=== PATIENT | female | born 1960 | race Caucasian/White ===

== ENCOUNTER 2016-09-09 08:26 | Observation (INO) | payer MEDICARE, OTHER ==
[2016-09-09 09:04] LABS: Hematocrit 28.1 % (37.0-47.0); Hemoglobin 9.2 gm/dL (12.5-16.0); Mean Cell Volume 92.4 fl (78-100); Mean Corpuscular Hemoglobin 30.3 pg (27-31); Mean Corpuscular Hgb Conc 32.7 g/dl (32-36); Mean Platelet Volume 9.8 fl (6.0-9.5); Neutrophil # 5.2 K/mm3 (1.3-6.0); Neutrophil % 66.2 % (42-75.0); Platelet Count 200 K/mm3 (150-450); Red Blood Count 3.04 M/mm3 (4.2-5.4); Red Cell Distribution Width 13.6 % (11.5-14.0); White Blood Count 7.9 K/mm3 (4.0-10.5)
[2016-09-09 09:18] LABS: Albumin * 2.9 gm/dl (3.4-5.0); Anion Gap 10.5 mmol/L (6.8-13.8); BUN/Creatinine Ratio 33.3 (9.0-21.6); Bilirubin, Total 0.2 mg/dL (0.0-1.1); Ca. Corrected For Albumin 8.9 mg/dL (8.4-10.2); Calcium * 8.3 mg/dL (7.9-10.9); Carbon Dioxide 27.5 mmol/L (24-32.6); Total Protein 5.6 gm/dL (6.2-8.2)
[2016-09-09 09:32] LABS: Prothrombin Time (Patient) 10.2 Seconds (9.4-11.4)
[2016-09-09 09:33] LABS: INR 0.98 INR (0.90-1.10)
[2016-09-09] MEDS ORDERED: NORMAL SALINE 1,000 ML IV ONE ×2 (09:37→16:57)
--- NOTE | 2016-09-09 09:50 | ERNOTE ---
GI Bleeding/Rectal Pain ER Date of Service: 09/09/16 Presenting Symptoms: rectal bleeding Time Seen by Provider: 09/09/16 08:48 Source: patient Exam Limitations: no limitations Immunizations: IMMUNIZATION HX Immunizations Up to Date Yes History of Influenza Vaccine Yes Hx Pneumococcal Vaccination Yes Allergies/Adverse Reactions: Allergies No Known Allergies Allergy (Verified 09/09/16 08:43) Home Medications: HOME MEDICATIONS Levothyroxine Sodium [Synthroid] 75 mcg PO DAILY 10/21/12 [Last Taken Unknown] Hydrochlorothiazide 6.25 mg PO DAILY 09/09/16 [Last Taken Unknown] Lisinopril [Zestril] 20 mg PO DAILY 09/09/16 [Last Taken Unknown] Meloxicam [Mobic] 15 mg PO DAILY 09/09/16 [Last Taken Unknown] Multivit-Min/FA/Lycopen/Lutein [Centrum Silver Tablet] 1 each PO DAILY 09/09/16 [Last Taken Unknown] Narrative: Patient presents to the ED for rectal bleeding. She relates that last night she had a BM with blood. Overnight twice and once this morning. It was relates do be large amounts of dark blood. She has had some bleeding before but it has been attributed to hemorrhoids. She denies syncope, no abdominal pain. No vomiting. Denies ASA or blood thinners. She does have some constipation. She has not seen anyone else for this. She has never had this much bleeding before. She relates she has had a colonoscopy in the past but cannot remember when and cannot recall what it showed. I cannot find record of this here. Timing: intermittent Quality/Severity: Present: other - denies pain Nausea/Vomiting: Present: none Abdominal Pain: Present: none Rectal Bleeding: Present: blood mixed with stool Prior Treament: Denies: recently seen Review of Systems - Review of Systems Constitutional: Absent: fever Respiratory: Absent: shortness of breath Cardiology: Absent: chest pain Gastrointestinal/Abdominal: Absent: vomiting, abdominal pain Genitourinary: Absent: dysuria All Other Systems: All systems neg except as marked - Patient's Past Medical History Patient History - Medical: Hypothyroidism, Other Patient History - Cardiac/Respiratory: No pertinent hx, Hypertension Patient History - Cancer: No Hx of Cancer Patient History - Surgical Procedures: No surgical history, Colonoscopy Patient History - Other: None LMP (females 10-50): 2002 - Social History Living Situations: significant other Abuse History: No History of abuse Psych History: No pertinent hx Smoking Status: Never smoker Do you dip or chew tobacco: No Alcohol Use: none Drug Use: none - Immunizations Immunizations Up to Date: Yes Hx Pneumococcal Vaccination: Yes History of Influenza Vaccine: Yes Physical Exam - Physical Exam General Appearance: Present: alert, no apparent distress Eye Exam: Normal inspection: bilateral, PERRL: bilateral Ears, Nose, Throat: Present: normal ENT inspection Neck: Present: normal inspection Respiratory: Present: no respiratory distress, normal breath sounds, no accessory muscle use, lungs clear Cardiovascular/Chest: Present: regular rate, rhythm, normal peripheral pulses Gastrointestinal/Abdominal: Present: normal bowel sounds, nontender, soft. Absent: tenderness, abnormal bowel sounds Rectal Exam: Present: other - External hemorrhoids but nothing that appears to be bleeding. On JC she had a fair amount of dark blood from the rectum. Back Exam: Absent: CVA tenderness (R), CVA tenderness (L) Extremity Exam: Present: normal inspection Neurological Exam: Present: alert, no motor/sensory deficits, diet clerk II-XII nml as tested Skin Exam: Absent: skin rash ED Progress - Results and Orders Patient's Lab Results:: I have reviewed the patient's lab results. - Vital Signs Patient's Vital Signs:: I have reviewed the patient's vital signs. Vital Signs: Vital Signs 09/09/16 09/09/16 09/09/16 08:34 08:43 08:55 Temperature 36.9 C 36.9 C Pulse Rate 70 70 88 Respiratory 15 15 Rate Blood Pressure 153/80 153/80 O2 Sat by Pulse 96 96 Oximetry - Progress/Reassessment Chief Complaint: GI Bleed Progress Note-Subjective: 09/09/16 09:48 I discussed the case with Dr Stone who will admit. D/W Dr Vásquez who will see the patient in consult and a bleeding scan was recommended which I ordered. Patient crossmatched. Has new anemia. No need for transfusion at this point. She will be admitted to the hospital with bleeding scan, Gen surg consult and supportive measures. Not on ASA or blood thinners. Departure Clinical Impression: Gastrointestinal bleeding - Departure Disposition: [facility] Condition: Stable Referrals: Samuel Collado MD [Primary Care Provider] -
[2016-09-09] MEDS ORDERED: PANTOPRAZOLE SODIUM 40 MG in NORMAL SALINE 100 ML IV SCH (12:00)
[2016-09-09 12:23] LABS: Hematocrit 26.9 % (37.0-47.0); Hemoglobin 8.8 gm/dL (12.5-16.0)
--- NOTE | 2016-09-09 12:27 | HP ---
<Lilia Ray - Last Filed: 09/09/16 12:10> Chief Complaint - Chief Complaint Date of Service: 09/09/16 Time of Service: 12:01 Chief Complaint: blood in stool History of Present Illness: Margaret is a 56 year old female with PMH of HTN and bilateral knee pain on mobic who presented to the ER this morning with c/o red blood in stool with clots for 12 hours. denies black tarry stools. no cp, dyspnea. no abdominal pain. no prior history of gi bleeding. no history of UC/diverticulsosis, gerd, or IBS. denies any family history of gi bleed. denies n/v. tagged nuc scan positive for bleeding in RLQ and LLQ. Patient admitted for active gi bleed with Dr. Maldonado (general surgery) to consult. - Patient's Past Medical History Patient History - Medical: Hypothyroidism, Other Patient History - Cardiac/Respiratory: No pertinent hx, Hypertension Patient History - Cancer: No Hx of Cancer Patient History - Surgical Procedures: Colonoscopy Patient History - Other: None LMP (females 10-50): 2002 - Family History Mother Family History - Medical: , Diabetes Type 1 Father Family History - Medical: , History Unknown - Social History Living Situations: significant other Abuse History: No History of abuse Psych History: No pertinent hx Smoking Status: Never smoker Have you smoked in the past 12 months: No Do you dip or chew tobacco: No Alcohol Use: none Drug Use: none - Immunizations Immunizations Up to Date: Yes Hx Pneumococcal Vaccination: Yes History of Influenza Vaccine: Yes Review Of Systems (GEN) - Review of Systems Generalized/Overall Review: Present: No Symptoms Reported EENTM: Present: No Symptoms Reported Respiratory: Present: No Symptoms Reported Cardiac: Present: No Symptoms Reported Abdominal: Present: Bright blood from rectum. Absent: Nausea, Vomiting, Hematemesis, Abdominal Pain, Constipation, Melena Genitourinary: Present: No Symptoms Reported Musculoskeletal: Present: No Symptoms Reported Neurological: Present: No Symptoms Reported Skin: Present: No Symptoms Reported Endocrine: Present: No Symptoms Reported Misc: All systems neg except as marked Allergies/Adverse Reactions: Allergies Allergy/AdvReac Type Severity Reaction Status Date / Time No Known Allergies Allergy Verified 09/09/16 13:00 Home Medications: HOME MEDICATIONS Levothyroxine Sodium [Synthroid] 75 mcg PO DAILY 10/21/12 [Last Taken Unknown] Hydrochlorothiazide 6.25 mg PO DAILY 09/09/16 [Last Taken Unknown] Lisinopril [Zestril] 20 mg PO DAILY 09/09/16 [Last Taken Unknown] Meloxicam [Mobic] 15 mg PO DAILY 09/09/16 [Last Taken Unknown] Multivit-Min/FA/Lycopen/Lutein [Centrum Silver Tablet] 1 each PO DAILY 09/09/16 [Last Taken Unknown] Exam - Exam Vital Signs: Vital Signs - Last Taken Temp 36.6 C 09/09/16 11:34 Pulse 73 09/09/16 11:34 Resp 16 09/09/16 11:34 BP 156/74 09/09/16 11:34 Pulse Ox 97 09/09/16 11:34 Constitutional: Present: Alert, Oriented x3, Cooperative, No distress ENT Exam: Present: hearing grossly normal Eye Exam: bilateral eye: normal inspection Neck: Present: full range of motion, supple Back Exam: Present: normal inspection, no vertebral tenderness Breasts: Present: Exam deferred Respiratory: Present: chest non-tender, lungs clear, normal breath sounds, no respiratory distress, no accessory muscle use Cardiovascular/Chest: Present: normal peripheral pulses, regular rate, rhythm, no chest tenderness, no edema Peripheral Pulses: carotid (R): 2+, carotid (L): 2+, dorsalis-pedis (R): 2+, dorsalis-pedis (L): 2+, radial (R): 2+, radial (L): 2+ Abdomen: Present: Normal bowel sounds, soft, nontender, nondistended /Rectal: Present: Exam deferred Extremity: Present: normal range of motion, non-tender, normal inspection, no pedal edema Skin Exam: Present: normal color, warm/dry, no cyanosis Neurologic: Present: alert, oriented x 3 Diagnostic Studies: Abnormal Lab Results 09/09/16 Range/Units 10:22 Stool Occult Blood Positive H Laboratory Results WBC 7.9 K/mm3 (4.0-10.5) 09/09/16 09:00 RBC 3.04 M/mm3 (4.2-5.4) L 09/09/16 09:00 Hgb 9.2 gm/dL (12.5-16.0) L 09/09/16 09:00 Hct 28.1 % (37.0-47.0) L 09/09/16 09:00 MCV 92.4 fl (78-100) 09/09/16 09:00 MCH 30.3 pg (27-31) 09/09/16 09:00 MCHC 32.7 g/dl (32-36) 09/09/16 09:00 RDW 13.6 % (11.5-14.0) 09/09/16 09:00 Plt Count 200 K/mm3 (150-450) 09/09/16 09:00 MPV 9.8 fl (6.0-9.5) H 09/09/16 09:00 Immature Gran % (Auto) 0.30 % (0.001-0.429) 09/09/16 09:00 Immature Gran # (Auto) 0.02 K/mm3 (0.000-0.0310) 09/09/16 09:00 Neutrophils % 66.2 % (42-75.0) 09/09/16 09:00 Lymphocytes % 25.2 % (20-51) 09/09/16 09:00 Monocytes % 6.7 % (0.0-9) 09/09/16 09:00 Eosinophils % 1.3 % (0.0-3.0) 09/09/16 09:00 Basophils % 0.3 % (0.0-1.0) 09/09/16 09:00 Nucleated RBC % 0.0 k/mm3 (0-1) 09/09/16 09:00 Neutrophils # 5.2 K/mm3 (1.3-6.0) 09/09/16 09:00 Lymphocytes # 2.0 k/mm3 (1.5-3.5) 09/09/16 09:00 Monocytes # 0.5 k/mm3 (0.0-1.0) 09/09/16 09:00 Eosinophils # 0.1 k/mm3 (0.0-0.7) 09/09/16 09:00 Absolute Basophils 0.0 k/mm3 (0.0-0.1) 09/09/16 09:00 PT 10.2 Seconds (9.4-11.4) 09/09/16 09:00 INR (Anticoag Therapy) 0.98 INR (0.90-1.10) 09/09/16 09:00 Sodium 147 mmol/L (132-142) H 09/09/16 09:00 Plasma Sodium 147 mmol/L (130-142) H 09/09/16 09:00 Potassium 4.0 mmol/L (3.4-4.6) 09/09/16 09:00 Chloride 113 mmol/L (97-106) H 09/09/16 09:00 Carbon Dioxide 27.5 mmol/L (24-32.6) 09/09/16 09:00 Anion Gap 10.5 mmol/L (6.8-13.8) 09/09/16 09:00 BUN 29 mg/dL (3-23) H D 09/09/16 09:00 Creatinine 0.87 mg/dL (0.4-1.4) 09/09/16 09:00 Est GFR (Non-Af Amer) 71 mL/min (60-130) 09/09/16 09:00 BUN/Creatinine Ratio 33.3 (9.0-21.6) H 09/09/16 09:00 Random Glucose 117 mg/dL (70-110) H 09/09/16 09:00 Calcium 8.3 mg/dL (7.9-10.9) 09/09/16 09:00 Calcium Adj for Albumin 8.9 mg/dL (8.4-10.2) 09/09/16 09:00 Total Bilirubin 0.2 mg/dL (0.0-1.1) 09/09/16 09:00 AST 14 U/L (0-48) 09/09/16 09:00 ALT 23 U/L (19-67) 09/09/16 09:00 Alkaline Phosphatase 76 U/L (50-170) 09/09/16 09:00 Total Protein 5.6 gm/dL (6.2-8.2) L 09/09/16 09:00 Albumin 2.9 gm/dl (3.4-5.0) L 09/09/16 09:00 Stool Occult Blood Positive H 09/09/16 10:22 Assessment/Plan - Narrative Narrative: GI Bleed - tagged RBC gi bleed study positive for bleeding in 2 areas - Dr Maldonado to consult, await his recommendations - protonix 40 mg iv daily - H/H every 4 hours, type and cross for 2 units on hold ordered - supplement with iv fluids - ns at 250 ml per hour - pt has agreed to transfusion if needed. - monitor on tele and cont pulse ox HTN - continue home meds if bp tolerates. - Assessment/Plan (1) Gastrointestinal bleeding Problem: Acute QualifierTitle: GI bleed type/associated pathology: unspecified gastrointestinal hemorrhage type Qualified Code(s): K92.2 - Gastrointestinal hemorrhage, unspecified (2) HTN (hypertension) Problem: Chronic QualifierTitle: Hypertension type: essential hypertension Qualified Code( s): I10 - Essential (primary) hypertension <Samuel Collado - Last Filed: 09/09/16 16:17> Immunizations: IMMUNIZATION HX Immunizations Up to Date Yes History of Influenza Vaccine Yes Hx Pneumococcal Vaccination Yes Exam - Exam Vital Signs: Vital Signs - Last Taken Temp 37.1 C 09/09/16 14:48 Pulse 70 09/09/16 14:48 Resp 18 09/09/16 14:48 BP 139/65 09/09/16 14:48 Pulse Ox 95 09/09/16 14:48 Diagnostic Studies: Abnormal Lab Results 09/09/16 09/09/16 09/09/16 Range/Units 10:22 12:05 12:05 Hgb 8.8 L (12.5-16.0) gm/dL Hct 26.9 L (37.0-47.0) % Stool Occult Blood Positive H Crossmatch See Detail 09/09/16 Range/Units 15:55 Hgb 7.9 L* (12.5-16.0) gm/dL Hct 24.4 L (37.0-47.0) % Stool Occult Blood Crossmatch Laboratory Results WBC 7.9 K/mm3 (4.0-10.5) 09/09/16 09:00 RBC 3.04 M/mm3 (4.2-5.4) L 09/09/16 09:00 Hgb 7.9 gm/dL (12.5-16.0) L* 09/09/16 15:55 Hct 24.4 % (37.0-47.0) L 09/09/16 15:55 MCV 92.4 fl (78-100) 09/09/16 09:00 MCH 30.3 pg (27-31) 09/09/16 09:00 MCHC 32.7 g/dl (32-36) 09/09/16 09:00 RDW 13.6 % (11.5-14.0) 09/09/16 09:00 Plt Count 200 K/mm3 (150-450) 09/09/16 09:00 MPV 9.8 fl (6.0-9.5) H 09/09/16 09:00 Immature Gran % (Auto) 0.30 % (0.001-0.429) 09/09/16 09:00 Immature Gran # (Auto) 0.02 K/mm3 (0.000-0.0310) 09/09/16 09:00 Neutrophils % 66.2 % (42-75.0) 09/09/16 09:00 Lymphocytes % 25.2 % (20-51) 09/09/16 09:00 Monocytes % 6.7 % (0.0-9) 09/09/16 09:00 Eosinophils % 1.3 % (0.0-3.0) 09/09/16 09:00 Basophils % 0.3 % (0.0-1.0) 09/09/16 09:00 Nucleated RBC % 0.0 k/mm3 (0-1) 09/09/16 09:00 Neutrophils # 5.2 K/mm3 (1.3-6.0) 09/09/16 09:00 Lymphocytes # 2.0 k/mm3 (1.5-3.5) 09/09/16 09:00 Monocytes # 0.5 k/mm3 (0.0-1.0) 09/09/16 09:00 Eosinophils # 0.1 k/mm3 (0.0-0.7) 09/09/16 09:00 Absolute Basophils 0.0 k/mm3 (0.0-0.1) 09/09/16 09:00 PT 10.2 Seconds (9.4-11.4) 09/09/16 09:00 INR (Anticoag Therapy) 0.98 INR (0.90-1.10) 09/09/16 09:00 Sodium 147 mmol/L (132-142) H 09/09/16 09:00 Plasma Sodium 147 mmol/L (130-142) H 09/09/16 09:00 Potassium 4.0 mmol/L (3.4-4.6) 09/09/16 09:00 Chloride 113 mmol/L (97-106) H 09/09/16 09:00 Carbon Dioxide 27.5 mmol/L (24-32.6) 09/09/16 09:00 Anion Gap 10.5 mmol/L (6.8-13.8) 09/09/16 09:00 BUN 29 mg/dL (3-23) H D 09/09/16 09:00 Creatinine 0.87 mg/dL (0.4-1.4) 09/09/16 09:00 Est GFR (Non-Af Amer) 71 mL/min (60-130) 09/09/16 09:00 BUN/Creatinine Ratio 33.3 (9.0-21.6) H 09/09/16 09:00 Random Glucose 117 mg/dL (70-110) H 09/09/16 09:00 Calcium 8.3 mg/dL (7.9-10.9) 09/09/16 09:00 Calcium Adj for Albumin 8.9 mg/dL (8.4-10.2) 09/09/16 09:00 Total Bilirubin 0.2 mg/dL (0.0-1.1) 09/09/16 09:00 AST 14 U/L (0-48) 09/09/16 09:00 ALT 23 U/L (19-67) 09/09/16 09:00 Alkaline Phosphatase 76 U/L (50-170) 09/09/16 09:00 Total Protein 5.6 gm/dL (6.2-8.2) L 09/09/16 09:00 Albumin 2.9 gm/dl (3.4-5.0) L 09/09/16 09:00 Stool Occult Blood Positive H 09/09/16 10:22 Blood Type O Positive 09/09/16 12:05 Antibody Screen Negative 09/09/16 12:05 Crossmatch See Detail 09/09/16 12:05 Assessment/Plan - Narrative Narrative: Patient was started on Meloxicam, 15 mg daily, on August 26, 2016, for bilateral knee pain. Dr. Humphrey has recommended following his evaluation that the patient be transferred to the [facility] for possible Interventional Radiology treatment. This will be accomplished. I personally directed all of our nurse practitioner hospitalist's care for this patient. - Assessment/Plan (1) Gastrointestinal bleeding Problem: Acute Qualifiers: GI bleed type/associated pathology: unspecified gastrointestinal hemorrhage type Qualified Code(s): K92.2 - Gastrointestinal hemorrhage, unspecified (2) HTN (hypertension) Problem: Chronic Qualifiers: Hypertension type: essential hypertension Qualified Code(s): I10 - Essential (primary) hypertension
--- NOTE | 2016-09-09 12:59 | CONS ---
HPI - General Date of Service: 09/09/16 Narrative: Pt presented to the ER with c/o of BRBPR since last night. Colonoscopy in 2008 was unremarkable. Was admitted and a bleeding scan shows active bleeding in both the RLQ and LLQ. Serial H&H is consistent with active ongoing bleed. Vitals are stable though. Getting fluid resuscitation. Source: patient, RN/MD, old records Exam Limitations: no limitations - History of Present Illness Allergies/Adverse Reactions: Allergies No Known Allergies Allergy (Verified 09/09/16 11:47) Home Medications: Home Medications Medication Instructions Recorded Last Taken Levothyroxine Sodium [Synthroid] 75 mcg PO DAILY 10/21/12 Unknown Hydrochlorothiazide 6.25 mg PO DAILY 09/09/16 Unknown Lisinopril [Zestril] 20 mg PO DAILY 09/09/16 Unknown Meloxicam [Mobic] 15 mg PO DAILY 09/09/16 Unknown Multivit-Min/FA/Lycopen/Lutein 1 each PO DAILY 09/09/16 Unknown [Centrum Silver Tablet] - Patient's Past Medical History Patient History - Medical: Hypothyroidism, Other Patient History - Cardiac/Respiratory: No pertinent hx, Hypertension Patient History - Cancer: No Hx of Cancer Patient History - Surgical Procedures: Colonoscopy Patient History - Other: None LMP (females 10-50): 2002 - Family History Mother Family History - Medical: , Diabetes Type 1 Father Family History - Medical: , History Unknown - Social History Living Situations: significant other Abuse History: No History of abuse Psych History: No pertinent hx Smoking Status: Never smoker Have you smoked in the past 12 months: No Do you dip or chew tobacco: No Alcohol Use: none Drug Use: none - Immunizations Immunizations Up to Date: Yes Hx Pneumococcal Vaccination: Yes History of Influenza Vaccine: Yes Procedures COLONOSCOPY (09/12/08) Medications - Medications Current Medications: Current Medications Sodium Chloride (Sodium Chloride 0.9%) 1,000 mls @ 250 mls/hr IV .Q4H ONE Stop: 09/09/16 13:36 Last Admin: 09/09/16 09:45 Dose: 250 mls/hr Review of Systems - Review of Systems Abdominal: Present: Bright blood from rectum. Absent: Nausea, Vomiting, Hematemesis, Abdominal Pain Misc: All systems neg except as marked Physical Examination - Exam Vital Signs: Vital Signs - Last Taken Temp 36.6 C 09/09/16 11:34 Pulse 73 09/09/16 11:34 Resp 16 09/09/16 11:34 BP 156/74 09/09/16 11:34 Pulse Ox 97 09/09/16 11:34 O2 Oxygen Delivery Method Room Air Constitutional: Present: Alert, Oriented x3, Cooperative, Well developed, Well nourished, No distress ENT Exam: Present: normal ENT inspection, hearing grossly normal Eye Exam: bilateral eye: normal inspection Neck: Present: normal inspection, trachea midline Respiratory: Present: no respiratory distress, no accessory muscle use Abdomen: Present: soft, nontender, nondistended, no rebound tenderness, no hepatospenomegaly, no masses, obese. Absent: guarding, rigidity, rebound tenderness Extremity: Present: normal inspection Skin Exam: Present: normal color, warm/dry Neurologic: Present: no motor/sensory deficits - Results and Findings: Lab/Microbiology results last 24 hrs: Abnormal/Pending Laboratory Last 24 HRS 09/09/16 09/09/16 12:05 10:22 Hgb 8.8 L Hct 26.9 L Stool Occult Blood Positive H - Assessments/Findings (1) Gastrointestinal bleeding Diagnosis(s): Recommend transfer to [facility] for interventional radiology. Only option here is a subtotal colectomy with ileostomy. Problem: Acute Qualifiers: GI bleed type/associated pathology: unspecified gastrointestinal hemorrhage type Qualified Code(s): K92.2 - Gastrointestinal hemorrhage, unspecified
[2016-09-09 16:03] LABS: Hematocrit 24.4 % (37.0-47.0)
[2016-09-09 16:12] LABS: Hemoglobin 7.9 gm/dL (12.5-16.0)
--- NOTE | 2016-09-09 16:12 | DS ---
Transfer Discharge Summary - Diagnosis(s)/Problems (1) Gastrointestinal bleeding Problem: Acute (2) HTN (hypertension) Problem: Chronic - Course Description of Stay: Given IV fluids while hospitalized in [facility]. Vitals remained stable. Seen in consultation by Dr. Maldonado, who recommended transfer to [facility] for possible radiologic intervention, as bleeding scan today showed both proximal and distal colonic areas of bleeding. I just spoke with the triage person at the [facility], and they will accept. Dr. Ernst in the MICU will be the accepting physician. Procedures Performed: none - Results and Findings Results and Findings: Laboratory Results - last 24 hr 09/09/16 09/09/16 09/09/16 10:22 12:05 12:05 Hgb 8.8 L Hct 26.9 L Stool Occult Blood Positive H Blood Type O Positive Antibody Screen Negative Crossmatch See Detail - Medications Medications: Active Medications Pantoprazole Sodium 40 mg/ (Sodium Chloride) 100 mls @ 400 mls/hr IV Q24H HECTOR Stop: 10/09/16 12:01 Last Infusion: 09/09/16 13:11 Dose: Infused Discontinued Medications Sodium Chloride (Sodium Chloride 0.9%) 1,000 mls @ 250 mls/hr IV .Q4H ONE Stop: 09/09/16 13:36 Last Infusion: 09/09/16 15:31 Dose: Infused - Disposition Disposition: [facility] Condition: Stable
[2016-09-09 16:54] VITALS: BP 128/68
== END 2016-09-09 17:04 | disposition short-term general hospital (02) ==
LOC: ER 08:26 → MS 09:58
PROVIDERS: ADMIT Nurse Practitioner Critical Care Medicine; ATTEND Allergy & Immunology
DX: K92.2 Gastrointestinal hemorrhage, unspecified (principal); I10 Essential (primary) hypertension; E03.9 Hypothyroidism, unspecified
CPT/HCPCS: 36415; 78278; 80053; 82272; 85014; 85018; 85025; 85610; 86850; 86900; 96365; 99284; A9560; G0378; P9016